=== PATIENT | female | born 1950 | race Caucasian/White ===

== ENCOUNTER 2017-10-19 17:14 | Emergency (ER) | payer OTHER ==
[~2017-10-19] VITALS: Ht 165.1 cm; Wt 92.7 kg
[~2017-10-19 17:14] MED LIST: DIOVAN HCT 31 TABLE1 PO; JANUMET 50/11 TABLET PO; Januvia PO; LANTUS (UNITS)1 UNIT IV; Norvasc PO; Vicodin,Norco 5/325 PO; celeBREX PO
[2017-10-19 19:53] VITALS: BP 151/73
== END 2017-10-19 20:20 | disposition home or self-care (01) ==
LOC: EME 17:14 → RME 17:14
DX: M79.632 Pain in left forearm (principal); S42.302A Unspecified fracture of shaft of humerus, left arm, initial encounter for closed fracture; W19.XXXA Unspecified fall, initial encounter; I10 Essential (primary) hypertension; E11.9 Type 2 diabetes mellitus without complications; Z79.84 Long term (current) use of oral hypoglycemic drugs; Z98.890 Other specified postprocedural states
CPT/HCPCS: 73090; 99281; 99284